=== PATIENT | female | born 1985 | race Caucasian/White ===

== ENCOUNTER 2020-01-14 23:20 | Emergency (ER) | payer SELFPAY ==
[~2020-01-14] VITALS: Ht 157.5 cm; Wt 57.6 kg
[2020-01-14 23:26] VITALS: Ht 157.5 cm; Wt 57.6 kg
[2020-01-15 00:13] LABS: BASOPHIL % 1.6 % (0-2); PLATELET COUNT 186 x10^3mcL (130-400); RED CELL DISTRIBUTION WIDTH 17.6 % (11.5-14.5)
[2020-01-15 00:16] LABS: CALCIUM 8.3 mg/dL (8.5-10.1); CARBON DIOXIDE 26.6 mmol/L (21-32); CHLORIDE SERUM 102 mmol/L (98-107); CREATININE SERUM 0.7 mg/dL (0.6-1.0); GFR1 > 60 mL/min; GLUCOSE SERUM 89 mg/dL (74-106); POTASSIUM SERUM 3.4 mmol/L (3.5-5.1); SODIUM SERUM 138 mmol/L (136-145)
[2020-01-15 00:20] LABS: ALBUMIN 3.6 g/dL (3.4-5.0); ALKALINE PHOSPHATASE 33 U/L (46-116); ALT/SGPT 20 U/L (14-59); AMYLASE 67 U/L (25-115); AST/SGOT 16 U/L (15-37); BILIRUBIN TOTAL 0.4 mg/dL (0.20-1.00); LIPASE 313 IU/L (73-393); TOTAL PROTEIN, SERUM 7.1 g/dL (6.4-8.2)
[2020-01-15 03:20] VITALS: BP 107/67
== END 2020-01-15 03:20 | disposition home or self-care (01) ==
LOC: ED 23:20
PROVIDERS: Emergency Medicine
DX: R10.32 Left lower quadrant pain (principal); R11.2 Nausea with vomiting, unspecified; Z98.51 Tubal ligation status; Z98.890 Other specified postprocedural states
CPT/HCPCS: J2270; J2405; J7030; Q0092; Q9967